=== PATIENT | male | born 2000 | race Two or more races ===

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

== ENCOUNTER 2021-12-17 10:32 | Inpatient (IN) | payer MEDICAID ==
[~2021-12-17] VITALS: Ht 157.5 cm; Wt 47.5 kg
[2021-12-17] MEDS ORDERED: IBUPROFEN 100MG/5ML ORAL SUSP 100 MG/5 ML UD PO ONE (11:00)
[2021-12-17 11:43] LABS: Urine Bacteria NONE SEEN /hpf (None Seen); Urine Blood 1+ /uL (Negative); Urine Mucus FEW (None Seen); Urine Specific Gravity 1.032 (1.001-1.035); Urine WBC 14 /hpf (0 - 3)
[2021-12-17 11:54] LABS: Basophils # (auto) 0 10 ^3/uL (0-0.2); Basophils % (auto) 0.2 % (0.0-2.0); Eosinophils # (auto) 0 10 ^3/uL (0-0.8); Lymphocytes # (auto) 0.6 10 ^3/uL (0.4-5.4); Monocytes # (auto) 0.6 10 ^3/uL (0-1.3); Monocytes % (auto) 7.7 % (0.0-12.0); Neutrophils % (auto) 83.6 % (37.0-80.0)
[2021-12-17 11:55] LABS: Amphetamine Screen, Urine NEGATIVE (NEGATIVE); Barbiturate Scree,Urine NEGATIVE (NEGATIVE); Benzodiazephine Screen, Urine NEGATIVE (NEGATIVE); Cannabinoid Screen, Urine NEGATIVE (NEGATIVE); Cocaine Screen, Urine NEGATIVE (NEGATIVE); Opiate Scree,Urine NEGATIVE (NEGATIVE); Phencyclidine Screen, Urine NEGATIVE (NEGATIVE)
[2021-12-17 11:56] LABS: Eosinophils % (auto) 0.1 % (0.0-7.0); Hematocrit 41.6 % (41.0-53.0); Hemoglobin 13.5 g/dL (13.5-17.5); Lymphocytes % (auto) 8.4 % (10.0-50.0); Mean Corpuscular Hemoglobin 24.2 pg (28.0-32.0); Mean Corpuscular Hgb Conc. 32.4 g/dL (32.0-36.0); Mean Corpuscular Volume 74.8 fL (80.0-100.0); Neutrophils # (auto) 6.1 10 ^3/uL (1.6-8.6); Nucleated Red Blood Cells % 0.4 %; Red Blood Cells 5.56 10^6/uL (4.5-5.90); White Blood Cell 7.3 10^3/uL (4.4-10.8)
[2021-12-17 12:16] LABS: Albumin 3.4 g/dL (3.4-5.0); BUN/Creatinine Ratio 12.3; Calcium 9.1 mg/dL (8.5-10.1)
[2021-12-17 12:19] LABS: Bilirubin, Total 1.3 mg/dL (0.2-1.0); Total Protein 7.5 g/dL (6.4-8.2)
[2021-12-17] MEDS ORDERED: metroNIDAZOLE 500MG/100ML 100 ML IV ONE (13:30)
[2021-12-17] MEDS ORDERED: SODIUM CHLORIDE 0.9% 1,000 ML IV ONE ×3 (13:30→15:45)
[2021-12-17] MEDS ORDERED: cefTRIAXone 1GM/50ML D5W 50 ML IV ONE (13:30)
[2021-12-17 15:06] LABS: Lactic Acid w/Reflex 2.5 mmol/L (0.4-2.0)
[2021-12-17] MEDS ORDERED: CEFEPIME 1GM/ 50ML 50 ML IV ONE (15:45)
[2021-12-17] MEDS ORDERED: MORPHINE SULFATE INJ 2 MG/ml SYRG IV PRN (15:45)
[2021-12-17] MEDS ORDERED: NITROGLYCERIN 0.4 MG SL TAB SL PRN (15:45)
[2021-12-17] MEDS ORDERED: levoFLOXacin 500MG 100 ML IV ONE (15:45)
[2021-12-17] MEDS ORDERED: POTASSIUM CHL 20 Meq TABLET PO ONE (16:00)
[2021-12-17 16:37] LABS: Cholesterol 88 mg/dL (< 200)
[2021-12-17 16:40] LABS: HDL Cholesterol 29 mg/dL (40-59); LDL Cholesterol 53 mg/dL (< 100); Triglycerides 94 mg/dL (< 150)
[2021-12-17] MEDS: CEFEPIME 1GM/ 50ML 50 ML IV SCH (19:08)
[2021-12-17] MEDS: metroNIDAZOLE 500MG/100ML 100 ML IV SCH (21:47)
[2021-12-17 22:00] VITALS: BP 110/74
[2021-12-18] MEDS: CEFEPIME 1GM/ 50ML 50 ML IV SCH ×2 (04:25→18:56)
[2021-12-18 05:00] VITALS: BP 90/54
[2021-12-18] MEDS: metroNIDAZOLE 500MG/100ML 100 ML IV SCH ×3 (05:32→21:32)
[2021-12-18] MEDS ORDERED: SODIUM CHLORIDE 0.9% 500 ML IV ONE (06:15)
[2021-12-18] MEDS: ONDANSETRON HCL 4 MG/2 ML VIAL IV PRN ×2 (06:21→20:26)
[2021-12-18 06:52] LABS: Basophils # (auto) 0 10 ^3/uL (0-0.2); Eosinophils # (auto) 0 10 ^3/uL (0-0.8); Hemoglobin 11.2 g/dL (13.5-17.5); Nucleated Red Blood Cells % 0.2 %
[2021-12-18 06:54] LABS: Basophils % (auto) 0.2 % (0.0-2.0); Eosinophils % (auto) 0.5 % (0.0-7.0); Hematocrit 33.5 % (41.0-53.0); Lymphocytes # (auto) 0.4 10 ^3/uL (0.4-5.4); Lymphocytes % (auto) 8.4 % (10.0-50.0); Mean Corpuscular Hemoglobin 25.1 pg (28.0-32.0); Mean Corpuscular Hgb Conc. 33.3 g/dL (32.0-36.0); Mean Corpuscular Volume 75.3 fL (80.0-100.0); Monocytes # (auto) 0.7 10 ^3/uL (0-1.3); Monocytes % (auto) 13.5 % (0.0-12.0); Neutrophils # (auto) 3.8 10 ^3/uL (1.6-8.6); Neutrophils % (auto) 77.4 % (37.0-80.0); Red Blood Cells 4.45 10^6/uL (4.5-5.90); Red Cell Distribution Width 15.2 % (11.8-14.3); White Blood Cell 4.9 10^3/uL (4.4-10.8)
[2021-12-18 07:09] LABS: Albumin 2.5 g/dL (3.4-5.0); Calcium 8.2 mg/dL (8.5-10.1); Potassium 3.2 mmol/L (3.5-5.1)
[2021-12-18 07:13] LABS: BUN/Creatinine Ratio 23.1; Total Protein 5.6 g/dL (6.4-8.2)
[2021-12-18 08:23] VITALS: BP 98/63
[2021-12-18 12:45] VITALS: BP 112/70
[2021-12-18] MEDS ORDERED: POTASSIUM CHLORIDE 40 MEQ, LIDOCAINE 1% (LOCAL ANESTH.) 4 ML in SODIUM CHL 0.9% 250 ML IV ONE (13:00)
[2021-12-18 16:29] VITALS: BP 106/55
[2021-12-18] MEDS: PANTOPRAZOLE 40 MG TAB PO SCH (21:32)
[2021-12-18 22:00] VITALS: BP 103/71
[2021-12-19] MEDS: CEFEPIME 1GM/ 50ML 50 ML IV SCH (04:56)
[2021-12-19] MEDS: metroNIDAZOLE 500MG/100ML 100 ML IV SCH (04:56)
[2021-12-19 05:00] VITALS: BP 103/71
[2021-12-19] MEDS: ONDANSETRON HCL 4 MG/2 ML VIAL IV PRN (05:14)
[2021-12-19 05:49] LABS: Basophils # (auto) 0 10 ^3/uL (0-0.2); Basophils % (auto) 0.2 % (0.0-2.0); Eosinophils # (auto) 0.1 10 ^3/uL (0-0.8); Eosinophils % (auto) 1.4 % (0.0-7.0); Hematocrit 33.7 % (41.0-53.0); Hemoglobin 11.1 g/dL (13.5-17.5); Lymphocytes # (auto) 0.5 10 ^3/uL (0.4-5.4); Lymphocytes % (auto) 9.7 % (10.0-50.0); Mean Corpuscular Hemoglobin 24.2 pg (28.0-32.0); Mean Corpuscular Hgb Conc. 32.9 g/dL (32.0-36.0); Mean Corpuscular Volume 73.7 fL (80.0-100.0); Monocytes # (auto) 0.7 10 ^3/uL (0-1.3); Monocytes % (auto) 12.5 % (0.0-12.0); Neutrophils # (auto) 4.2 10 ^3/uL (1.6-8.6); Neutrophils % (auto) 76.2 % (37.0-80.0); Nucleated Red Blood Cells % 0.2 %; Red Blood Cells 4.57 10^6/uL (4.5-5.90); Red Cell Distribution Width 15.6 % (11.8-14.3); White Blood Cell 5.5 10^3/uL (4.4-10.8)
[2021-12-19 06:01] LABS: BUN/Creatinine Ratio 15.7; Calcium 8.5 mg/dL (8.5-10.1); Magnesium 1.8 mg/dL (1.6-2.6); Potassium 3.3 mmol/L (3.5-5.1)
[2021-12-19 09:00] VITALS: BP 102/50
[2021-12-19] MEDS: PANTOPRAZOLE 40 MG TAB PO SCH (09:20)
[2021-12-19] MEDS ORDERED: PANT40TA2 PO (12:26)
[2021-12-19] MEDS ORDERED: METR500T PO (12:26)
[2021-12-19] MEDS ORDERED: LEVO-28 PO (12:26)
[2021-12-19 13:00] VITALS: BP 101/62
[2021-12-19 13:41] VITALS: BP 101/62
== END 2021-12-19 14:28 | disposition home or self-care (01) | DRG 249 ==
LOC: ER 10:32 → TELE 15:48 → TELE-WESTW 20:39
PROVIDERS: ADMIT Registered Nurse; ATTEND Registered Nurse
DX: K52.9 Noninfective gastroenteritis and colitis, unspecified (principal); D69.6 Thrombocytopenia, unspecified; C85.90 Non-Hodgkin lymphoma, unspecified, unspecified site; Z94.4 Liver transplant status; E87.6 Hypokalemia; R31.9 Hematuria, unspecified; R80.9 Proteinuria, unspecified; Z20.822 Contact with and (suspected) exposure to COVID-19; Z88.0 Allergy status to penicillin
CPT/HCPCS: 36415; 71045; 74176; 80048; 80053; 80061; 80307; 81001; 83036; 83605; 83690; 83735; 84443; 85025; 87040; 87045; 87086; 87427; 87493; 93005; 93306; 96361; 96365; 96367; G0378; J1956; J2001; J2405; J3490

== ENCOUNTER 2023-03-26 16:50 | Inpatient (IN) | payer BC, MEDICAID ==
[~2023-03-26] VITALS: Ht 154.9 cm; Wt 39.2 kg
[~2023-03-26 16:50] MED LIST: LEVO500T91 PO; METR500T PO; PANT40TA2 PO
[2023-03-26 17:48] LABS: Basophils # (auto) 0 10 ^3/uL (0-0.2); Basophils % (auto) 0.3 % (0.0-2.0); Eosinophils # (auto) 0.2 10 ^3/uL (0-0.8); Eosinophils % (auto) 4.8 % (0.0-7.0); Hematocrit 41.5 % (41.0-53.0); Hemoglobin 13.7 g/dL (13.5-17.5); Lymphocytes % (auto) 20.9 % (10.0-50.0); Mean Corpuscular Hemoglobin 28.8 pg (28.0-32.0); Mean Corpuscular Volume 87.2 fL (80.0-100.0); Monocytes # (auto) 0.3 10 ^3/uL (0-1.3); Monocytes % (auto) 6.3 % (0.0-12.0); Neutrophils # (auto) 3.4 10 ^3/uL (1.6-8.6); Neutrophils % (auto) 67.7 % (37.0-80.0); Nucleated Red Blood Cells % 0.2 %; Red Blood Cells 4.76 10^6/uL (4.5-5.90); Red Cell Distribution Width 14.5 % (11.8-14.3)
[2023-03-26 18:12] LABS: Alanine Aminotransferase 51 U/L (7-40); Albumin 4.2 g/dL (3.2-4.8); Alkaline Phosphatase 99 U/L (46-116); Anion Gap 8 (5-15); Aspartate Aminotransferase 33 U/L (13-40); BUN/Creatinine Ratio 22.5 (10.0-20.0); Blood Urea Nitrogen 16 mg/dL (9-23); Calcium 9.4 mg/dL (8.7-10.4); Carbon Dioxide 28 mmol/L (20-30); Chloride 104 mmol/L (98-107); Glucose 112 mg/dL (74-106); Potassium 4.2 mmol/L (3.5-5.1); Sodium 140 mmol/L (136-145)
[2023-03-26 18:13] LABS: Total Protein 6.6 g/dL (5.7-8.2)
[2023-03-26 20:08] LABS: INR 1.14 (0.9-1.15); Prothrombin Time 11.9 sec (9.3-11.8)
[2023-03-26] MEDS ORDERED: PANTOPRAZOLE 80 MG in SODIUM CHL 0.9% 100 ML IV ONE (21:00)
[2023-03-26] MEDS ORDERED: PANTOPRAZOLE 40mg/50ML NS AE 50 ML IV ONE (21:00)
[2023-03-26] MEDS ORDERED: HYDROcodone-ACET 5/325MG TAB PO PRN (21:00)
[2023-03-26] MEDS ORDERED: ONDANSETRON HCL 4 MG/2 ML VIAL IV PRN (21:00)
[2023-03-26] MEDS ORDERED: DOCUSATE SOD 100 MG CAP PO PRN (21:00)
[2023-03-26] MEDS ORDERED: IBUPROFEN 400 MG TAB PO PRN (21:15)
[2023-03-26] MEDS ORDERED: MORPHINE SULFATE INJ 2 MG/ml SYRG IV PRN (22:00)
[2023-03-26] MEDS ORDERED: NITROGLYCERIN 0.4 MG SL TAB SL PRN (22:00)
[2023-03-27] MEDS ORDERED: PANTOPRAZOLE 40 MG/10 ML VIAL INJ IV ONE (00:08)
[2023-03-27] MEDS: SODIUM CHLOR 0.9% PF (SALINE LOCK) 10ML VIAL/SYR IV SCH ×4 (00:14→22:30)
[2023-03-27] MEDS: SOD CHL 0.45% 1,000 ML IV SCH ×3 (00:14→22:44)
[2023-03-27 00:32] LABS: Urine Bacteria NONE SEEN /hpf (None Seen); Urine Blood Negative /uL (Negative); Urine Clarity Clear (Clear); Urine Color Yellow (Yellow); Urine Mucus FEW (None Seen); Urine Protein, UAD Negative (Negative); Urine Specific Gravity 1.026 (1.001-1.035); Urine WBC 1 /hpf (0 - 3)
[2023-03-27 06:31] LABS: Basophils # (auto) 0 10 ^3/uL (0-0.2); Basophils % (auto) 0.3 % (0.0-2.0); Eosinophils # (auto) 0.2 10 ^3/uL (0-0.8); Eosinophils % (auto) 3.2 % (0.0-7.0); Hematocrit 37.4 % (41.0-53.0); Hemoglobin 12.5 g/dL (13.5-17.5); Lymphocytes # (auto) 0.8 10 ^3/uL (0.4-5.4); Lymphocytes % (auto) 16.6 % (10.0-50.0); Mean Corpuscular Hemoglobin 29.3 pg (28.0-32.0); Mean Corpuscular Hgb Conc. 33.4 g/dL (32.0-36.0); Mean Corpuscular Volume 87.7 fL (80.0-100.0); Monocytes # (auto) 0.4 10 ^3/uL (0-1.3); Monocytes % (auto) 8.4 % (0.0-12.0); Neutrophils # (auto) 3.6 10 ^3/uL (1.6-8.6); Neutrophils % (auto) 71.5 % (37.0-80.0); Nucleated Red Blood Cells % 0.3 %; Red Blood Cells 4.27 10^6/uL (4.5-5.90); Red Cell Distribution Width 14.5 % (11.8-14.3)
[2023-03-27 06:40] LABS: Alanine Aminotransferase 46 U/L (7-40); Alkaline Phosphatase 85 U/L (46-116); Anion Gap 8 (5-15); BUN/Creatinine Ratio 15.3 (10.0-20.0); Blood Urea Nitrogen 11 mg/dL (9-23); Calcium 9.5 mg/dL (8.7-10.4); Carbon Dioxide 25 mmol/L (20-30); Chloride 104 mmol/L (98-107); Glucose 109 mg/dL (74-106); Potassium 3.9 mmol/L (3.5-5.1); Sodium 137 mmol/L (136-145)
[2023-03-27 06:41] LABS: Albumin 4.1 g/dL (3.2-4.8); Aspartate Aminotransferase 29 U/L (13-40); Bilirubin, Total 1.5 mg/dL (0.2-1.0); Total Protein 6.4 g/dL (5.7-8.2)
[2023-03-27 07:56] VITALS: RESP 16
[2023-03-27 19:30] VITALS: PULSE 107; RESP 20; O2SAT 99
[2023-03-27 22:50] VITALS: BP 105/71; PULSE 108; PULSE 96; RESP 18; TEMP 99.1; O2SAT 100
[2023-03-28] VITALS (7 sets, daily range): BP systolic 88–118; BP diastolic 55–79; PULSE 71–108; RESP 18–21; TEMP 97.5–99.1; O2SAT 97–100
[2023-03-28] MEDS: SODIUM CHLOR 0.9% PF (SALINE LOCK) 10ML VIAL/SYR IV SCH ×3 (05:54→21:40)
[2023-03-28 06:06] LABS: Basophils # (auto) 0 10 ^3/uL (0-0.2); Basophils % (auto) 0.6 % (0.0-2.0); Eosinophils # (auto) 0.3 10 ^3/uL (0-0.8); Eosinophils % (auto) 8.2 % (0.0-7.0); Hematocrit 29.8 % (41.0-53.0); Hemoglobin 10.3 g/dL (13.5-17.5); Lymphocytes # (auto) 0.9 10 ^3/uL (0.4-5.4); Mean Corpuscular Hemoglobin 29.7 pg (28.0-32.0); Mean Corpuscular Hgb Conc. 34.4 g/dL (32.0-36.0); Mean Corpuscular Volume 86.4 fL (80.0-100.0); Monocytes # (auto) 0.3 10 ^3/uL (0-1.3); Monocytes % (auto) 9.2 % (0.0-12.0); Neutrophils # (auto) 1.9 10 ^3/uL (1.6-8.6); Red Blood Cells 3.45 10^6/uL (4.5-5.90); Red Cell Distribution Width 14.2 % (11.8-14.3); White Blood Cell 3.5 10^3/uL (4.4-10.8)
[2023-03-28 06:30] LABS: Alanine Aminotransferase 37 U/L (7-40); Alkaline Phosphatase 64 U/L (46-116); Anion Gap 5 (5-15); BUN/Creatinine Ratio 15.4 (10.0-20.0); Blood Urea Nitrogen 10 mg/dL (9-23); Calcium 9.1 mg/dL (8.7-10.4); Carbon Dioxide 28 mmol/L (20-30); Chloride 105 mmol/L (98-107); Glucose 94 mg/dL (74-106); Magnesium 1.8 mg/dL (1.6-2.6); Potassium 4.1 mmol/L (3.5-5.1); Sodium 138 mmol/L (136-145)
[2023-03-28 06:31] LABS: Albumin 3.4 g/dL (3.2-4.8); Aspartate Aminotransferase 24 U/L (13-40)
[2023-03-28 06:32] LABS: Bilirubin, Total 1.2 mg/dL (0.2-1.0); Total Protein 5.3 g/dL (5.7-8.2)
[2023-03-28] MEDS ORDERED: LIDOCAINE 2%HCL (LOCAL ANESTH.) INJ 10ml MDV ONE (09:53)
[2023-03-28] MEDS ORDERED: MIDAZOLAM HCL 2MG/2ML 2ml VIAL (1mg/ml) IV ONE (10:15)
[2023-03-28] MEDS ORDERED: fentaNYL CITRATE 100 MCG/2 ML VL IV ONE (10:15)
[2023-03-28] MEDS: SOD CHL 0.45% 1,000 ML IV SCH (11:10)
[2023-03-29] VITALS (7 sets, daily range): BP systolic 99–112; BP diastolic 63–72; PULSE 48–119; RESP 11–20; TEMP 97.1–98.1; O2SAT 97–100
[2023-03-29] MEDS: SOD CHL 0.45% 1,000 ML IV SCH ×2 (00:21→12:09)
[2023-03-29 05:57] LABS: Basophils # (auto) 0 10 ^3/uL (0-0.2); Basophils % (auto) 0.6 % (0.0-2.0); Eosinophils # (auto) 0.2 10 ^3/uL (0-0.8); Eosinophils % (auto) 5.2 % (0.0-7.0); Hematocrit 28.7 % (41.0-53.0); Hemoglobin 9.7 g/dL (13.5-17.5); Lymphocytes # (auto) 0.7 10 ^3/uL (0.4-5.4); Lymphocytes % (auto) 18.6 % (10.0-50.0); Mean Corpuscular Hemoglobin 29.6 pg (28.0-32.0); Mean Corpuscular Hgb Conc. 33.8 g/dL (32.0-36.0); Mean Corpuscular Volume 87.4 fL (80.0-100.0); Monocytes # (auto) 0.3 10 ^3/uL (0-1.3); Monocytes % (auto) 8.4 % (0.0-12.0); Neutrophils # (auto) 2.4 10 ^3/uL (1.6-8.6); Neutrophils % (auto) 67.2 % (37.0-80.0); Nucleated Red Blood Cells % 0.3 %; Red Blood Cells 3.28 10^6/uL (4.5-5.90); Red Cell Distribution Width 14.6 % (11.8-14.3); White Blood Cell 3.6 10^3/uL (4.4-10.8)
[2023-03-29] MEDS: SODIUM CHLOR 0.9% PF (SALINE LOCK) 10ML VIAL/SYR IV SCH ×3 (06:17→21:36)
[2023-03-29] MEDS ORDERED: diphenhdrAMINE HCL 50 MG/1 ML VL ONE (16:12)
[2023-03-29] MEDS ORDERED: SODIUM CHLORIDE LOCK 10 ML ONE (16:12)
[2023-03-29] MEDS ORDERED: MIDAZOLAM HCL 5 MG/ML-1ML VIAL ONE (16:12)
[2023-03-29] MEDS ORDERED: LIDOCAINE VISCOUS 2% 15ML UD ONE (16:12)
[2023-03-29] MEDS ORDERED: fentaNYL CITRATE 100 MCG/2 ML VL ONE (16:13)
[2023-03-29] MEDS ORDERED: diphenhdrAMINE HCL 50 MG/1 ML VL IV ONE ×2 (16:30→16:32)
[2023-03-29] MEDS ORDERED: fentaNYL CITRATE 100 MCG/2 ML VL IV ONE ×3 (16:30→16:35)
[2023-03-29] MEDS ORDERED: MIDAZOLAM HCL 5 MG/ML-1ML VIAL IV ONE ×3 (16:30→16:35)
[2023-03-29] MEDS ORDERED: SODIUM FERR GLUC 62.5MG/5ML 125 MG in SODIUM CHL 0.9% 100 ML IV ONE (16:45)
[2023-03-29] MEDS ORDERED: phytonadione 10 MG in SODIUM CHL 0.9% 50 ML IV ONE (16:45)
[2023-03-29] MEDS: SUCRALFATE 1 GM/10 ML ORAL SUSP PO SCH ×2 (17:00→21:36)
[2023-03-29] MEDS: PANTOPRAZOLE 40 MG/10 ML VIAL INJ IV SCH (21:36)
[2023-03-30 05:00] VITALS: BP 99/58; PULSE 87; RESP 17; TEMP 97.1; O2SAT 93
[2023-03-30] MEDS: SOD CHL 0.45% 1,000 ML IV SCH (05:15)
[2023-03-30] MEDS: SUCRALFATE 1 GM/10 ML ORAL SUSP PO SCH ×2 (06:20→11:16)
[2023-03-30] MEDS: SODIUM CHLOR 0.9% PF (SALINE LOCK) 10ML VIAL/SYR IV SCH (06:20)
[2023-03-30 06:41] LABS: Basophils # (auto) 0 10 ^3/uL (0-0.2); Basophils % (auto) 0.4 % (0.0-2.0); Eosinophils # (auto) 0.2 10 ^3/uL (0-0.8); Eosinophils % (auto) 4.7 % (0.0-7.0); Hematocrit 29.2 % (41.0-53.0); Lymphocytes # (auto) 0.6 10 ^3/uL (0.4-5.4); Lymphocytes % (auto) 15.8 % (10.0-50.0); Mean Corpuscular Hemoglobin 29.8 pg (28.0-32.0); Mean Corpuscular Hgb Conc. 34.4 g/dL (32.0-36.0); Mean Corpuscular Volume 86.6 fL (80.0-100.0); Monocytes # (auto) 0.3 10 ^3/uL (0-1.3); Monocytes % (auto) 8.9 % (0.0-12.0); Neutrophils # (auto) 2.6 10 ^3/uL (1.6-8.6); Neutrophils % (auto) 70.2 % (37.0-80.0); Nucleated Red Blood Cells % 0.5 %; Red Blood Cells 3.38 10^6/uL (4.5-5.90); Red Cell Distribution Width 14.6 % (11.8-14.3); White Blood Cell 3.7 10^3/uL (4.4-10.8)
[2023-03-30 08:00] VITALS: PULSE 89; RESP 18
[2023-03-30 08:55] VITALS: BP 102/45; PULSE 99; RESP 16; TEMP 98.1; O2SAT 100
[2023-03-30] MEDS: PANTOPRAZOLE 40 MG/10 ML VIAL INJ IV SCH (09:03)
[2023-03-30] MEDS ORDERED: PANT40TA2 PO (09:57)
[2023-03-30] MEDS ORDERED: SUCR1TAB22 OR (09:57)
[2023-03-30 12:08] VITALS: BP 104/48; PULSE 98; RESP 18; TEMP 36.7; O2SAT 100
== END 2023-03-30 12:47 | disposition home or self-care (01) | DRG 378 ==
LOC: ER 16:50 → TELE 21:53 → TELE-CENTR 03-27 22:21
PROVIDERS: ADMIT Nurse Practitioner Family; ATTEND Internal Medicine Geriatric Medicine
PROC: 079T3ZX Drainage of Bone Marrow, Percutaneous Approach, Diagnostic (ICD-10-PCS; principal; 2023-03-28)
PROC: 07DR3ZX Extraction of Iliac Bone Marrow, Percutaneous Approach, Diagnostic (ICD-10-PCS; 2023-03-28)
PROC: 0DB98ZX Excision of Duodenum, Via Natural or Artificial Opening Endoscopic, Diagnostic (ICD-10-PCS; 2023-03-29)
PROC: 0DB68ZX Excision of Stomach, Via Natural or Artificial Opening Endoscopic, Diagnostic (ICD-10-PCS; 2023-03-29)
DX: K31.811 Angiodysplasia of stomach and duodenum with bleeding (principal); D61.818 Other pancytopenia; D68.9 Coagulation defect, unspecified; K76.6 Portal hypertension; Z94.4 Liver transplant status; K31.7 Polyp of stomach and duodenum; K43.9 Ventral hernia without obstruction or gangrene; K31.9 Disease of stomach and duodenum, unspecified; Z88.0 Allergy status to penicillin; Z85.72 Personal history of non-Hodgkin lymphomas; K29.70 Gastritis, unspecified, without bleeding
CPT/HCPCS: 10005; 36415; 72192; 74176; 77012; 80053; 81001; 82270; 83735; 85025; 85048; 85610; 86850; 86900; 86901; 87045; 87081; 87427; 87493; C9113; G0378; J2001; J2250; J3430

== ENCOUNTER 2024-03-01 07:16 | Inpatient (IN) | payer BC, MEDICAID ==
[~2024-03-01] VITALS: Ht 157.5 cm; Wt 44.6 kg
[~2024-03-01 07:16] MED LIST changes: -LEVO500T91 PO; -METR500T PO; +SUCR1TAB31 OR
[2024-03-01] MEDS: PANTOPRAZOLE 40 MG/10 ML VIAL INJ IV ONE (08:00)
[2024-03-01 08:37] LABS: Alanine Aminotransferase 52 U/L (7-40); Albumin 4.6 g/dL (3.2-4.8); Alkaline Phosphatase 104 U/L (46-116); Anion Gap 7 (5-15); Aspartate Aminotransferase 40 U/L (13-40); BUN/Creatinine Ratio 12.2 (10.0-20.0); Bilirubin, Total 1.1 mg/dL (0.2-1.0); Blood Urea Nitrogen 9 mg/dL (9-23); Calcium 10.6 mg/dL (8.7-10.4); Carbon Dioxide 31 mmol/L (20-31); Chloride 102 mmol/L (98-107); Glucose 116 mg/dL (74-106); Potassium 4.4 mmol/L (3.5-5.1); Sodium 140 mmol/L (136-145)
[2024-03-01 13:56] LABS: Basophils # (auto) 0 10 ^3/uL (0-0.2); Basophils % (auto) 0.4 % (0.0-2.0); Eosinophils # (auto) 0.1 10 ^3/uL (0-0.8); Eosinophils % (auto) 1.5 % (0.0-7.0); Hematocrit 41.3 % (41.0-53.0); Hemoglobin 13.8 g/dL (13.5-17.5); Lymphocytes # (auto) 0.6 10 ^3/uL (0.4-5.4); Mean Corpuscular Hemoglobin 28.3 pg (28.0-32.0); Mean Corpuscular Hgb Conc. 33.5 g/dL (32.0-36.0); Mean Corpuscular Volume 84.3 fL (80.0-100.0); Monocytes # (auto) 0.3 10 ^3/uL (0-1.3); Monocytes % (auto) 6.2 % (0.0-12.0); Neutrophils # (auto) 4.5 10 ^3/uL (1.6-8.6); Neutrophils % (auto) 81.9 % (37.0-80.0); Nucleated Red Blood Cells % 0.2 %; Platelet Count (auto) 91 10^3/uL (140-450); Red Cell Distribution Width 16.8 % (11.8-14.3); White Blood Cell 5.5 10^3/uL (4.4-10.8)
[2024-03-01 14:15] LABS: INR 1.09 (0.9-1.15); Partial Thromboplastin Time 25.5 SEC (24.5-34.5); Prothrombin Time 11.5 sec (9.3-11.8)
[2024-03-01] MEDS: SODIUM CHLORIDE 0.9% 1,000 ML IV SCH (15:15)
[2024-03-01] MEDS ORDERED: DOCUSATE SOD 100 MG CAP PO PRN (15:15)
[2024-03-01] MEDS ORDERED: ONDANSETRON HCL 4 MG/2 ML VIAL IV PRN (15:15)
[2024-03-01] MEDS ORDERED: NITROGLYCERIN 0.4 MG SL TAB SL PRN (15:15)
[2024-03-01 15:57] LABS: Hematocrit 41.3 % (41.0-53.0); Hemoglobin 13.9 g/dL (13.5-17.5)
[2024-03-01 20:33] VITALS: PULSE 106; RESP 16; O2SAT 99
[2024-03-01] MEDS: PANTOPRAZOLE 40 MG/10 ML VIAL INJ IV SCH (22:09)
[2024-03-02] VITALS (7 sets, daily range): BP systolic 90–113; BP diastolic 54–69; PULSE 71–111; RESP 12–20; TEMP 97.5–98; O2SAT 95–99
[2024-03-02] MEDS: MORPHINE SULFATE INJ 2 MG/ml SYRG IV PRN (02:02)
[2024-03-02 07:00] LABS: Basophils # (auto) 0 10 ^3/uL (0-0.2); Basophils % (auto) 0.5 % (0.0-2.0); Eosinophils # (auto) 0.2 10 ^3/uL (0-0.8); Eosinophils % (auto) 5.7 % (0.0-7.0); Hematocrit 37.5 % (41.0-53.0); Hemoglobin 12.9 g/dL (13.5-17.5); Lymphocytes # (auto) 0.8 10 ^3/uL (0.4-5.4); Lymphocytes % (auto) 19.8 % (10.0-50.0); Mean Corpuscular Hemoglobin 29.2 pg (28.0-32.0); Mean Corpuscular Hgb Conc. 34.3 g/dL (32.0-36.0); Mean Corpuscular Volume 84.9 fL (80.0-100.0); Monocytes # (auto) 0.3 10 ^3/uL (0-1.3); Monocytes % (auto) 8.9 % (0.0-12.0); Neutrophils # (auto) 2.6 10 ^3/uL (1.6-8.6); Neutrophils % (auto) 65.1 % (37.0-80.0); Platelet Count (auto) 76 10^3/uL (140-450); Red Blood Cells 4.41 10^6/uL (4.5-5.90); Red Cell Distribution Width 16.7 % (11.8-14.3); White Blood Cell 3.9 10^3/uL (4.4-10.8)
[2024-03-02 07:21] LABS: Alanine Aminotransferase 45 U/L (7-40); Albumin 3.8 g/dL (3.2-4.8); Alkaline Phosphatase 84 U/L (46-116); Anion Gap 7 (5-15); Aspartate Aminotransferase 35 U/L (13-40); BUN/Creatinine Ratio 13.2 (10.0-20.0); Bilirubin, Total 1.6 mg/dL (0.2-1.0); Blood Urea Nitrogen 9 mg/dL (9-23); Calcium 9.9 mg/dL (8.7-10.4); Carbon Dioxide 27 mmol/L (20-31); Chloride 107 mmol/L (98-107); Glucose 87 mg/dL (74-106); Sodium 141 mmol/L (136-145); Total Protein 5.8 g/dL (5.7-8.2)
[2024-03-02 16:52] LABS: Hematocrit 38.4 % (41.0-53.0); Hemoglobin 12.7 g/dL (13.5-17.5)
[2024-03-03] VITALS (8 sets, daily range): BP systolic 97–111; BP diastolic 30–73; PULSE 60–117; RESP 17–18; TEMP 97.6–98.4; O2SAT 94–99
[2024-03-04 01:00] VITALS: BP 109/72; PULSE 89; RESP 16; TEMP 98.1; O2SAT 97
[2024-03-04 05:00] VITALS: BP 109/62; PULSE 76; RESP 17; TEMP 98; O2SAT 97
[2024-03-04 08:00] VITALS: PULSE 111; RESP 18; O2SAT 97
[2024-03-04 09:00] VITALS: BP 99/37; PULSE 111; RESP 18; TEMP 97.7; O2SAT 97
[2024-03-04 13:00] VITALS: BP 109/43; PULSE 75; RESP 17; TEMP 97.8; O2SAT 97
[2024-03-04 19:37] VITALS: TEMP 36.6
== END 2024-03-04 19:00 | disposition home or self-care (01) | DRG 378 ==
LOC: ER 07:16 → OVERFLOW 15:11 → WEST WING 23:15
PROVIDERS: ADMIT Nurse Practitioner Family; ATTEND Family Medicine
DX: K92.2 Gastrointestinal hemorrhage, unspecified (principal); Z94.4 Liver transplant status; I85.00 Esophageal varices without bleeding; D69.6 Thrombocytopenia, unspecified; K43.9 Ventral hernia without obstruction or gangrene; D64.9 Anemia, unspecified; R74.01 Elevation of levels of liver transaminase levels; K31.7 Polyp of stomach and duodenum; R16.1 Splenomegaly, not elsewhere classified; Z85.72 Personal history of non-Hodgkin lymphomas; Z88.0 Allergy status to penicillin; Z79.899 Other long term (current) drug therapy; Z87.19 Personal history of other diseases of the digestive system; Z80.3 Family history of malignant neoplasm of breast; Q27.39 Arteriovenous malformation, other site; Z83.719 Family history of colon polyps, unspecified; Z92.21 Personal history of antineoplastic chemotherapy; Z92.3 Personal history of irradiation
CPT/HCPCS: 36415; 74176; 80053; 85014; 85018; 85025; 85610; 85730; 86850; 86900; 86901; 96374; 99291; G0378; J2470